=== PATIENT | male | born 1950 | race Caucasian/White ===

== ENCOUNTER 2018-07-14 18:53 | Emergency (ER) | payer MEDICARE, BC ==
--- NOTE | 2018-07-14 19:21 | ER Document Report ---
ED Medical Screen (RME) - General Chief Complaint: Head Injury with LOC Stated Complaint: HEAD INJURY Time Seen by Provider: 07/14/18 19:08 Mode of Arrival: Ambulatory Information source: Patient Notes: 67-year-old male presents emergency department for possible skull fracture. Patient states that he was laying on his back watching TV last night then he stood up and the next thing he remembers was EMS surrounding him. Patient states that he did not feel lightheaded, flushed, nauseated, spinning prior to the fall. Patient states that he hit his head on the coffee table. He refused to go to the emergency department last night for evaluation. He went to see his primary care physician today around 5 PM. He he was having floaters in his right eye. Patient's primary care physician sutured the laceration and thought that there was a skull fracture. He sent the patient to the emergency department for further evaluation. Patient denies any speech changes, numbness, tingling, weakness. He states he is not on any blood thinners. He is having some neck pain. He states that it is midline at the base of his skull. I have greeted and performed a rapid initial assessment of this patient. A comprehensive ED assessment and evaluation of the patient, analysis of test results and completion of the medical decision making process will be conducted by additional ED providers. PHYSICAL EXAMINATION: GENERAL: Well-appearing, well-nourished and in no acute distress. HEAD: R scalp laceration, normocephalic. EYES: Pupils equal round extraocular movements intact, conjunctiva are normal. ENT: Nares patent NECK: Tenderness to palpation at the base of the skull/proximal cervical spine. LUNGS: No respiratory distress Musculoskeletal: Normal range of motion NEUROLOGICAL: Normal speech, normal gait. PSYCH: Normal mood, normal affect. SKIN: Warm, Dry, normal turgor, no rashes or lesions noted. TRAVEL OUTSIDE OF THE [place] IN LAST 30 DAYS: No COUNTRY TRAVELED TO/FROM: [place] - Related Data Allergies/Adverse Reactions: No Known Allergies Allergy (Verified 04/12/17 18:12) Past Medical History - Social History Chew tobacco use (# tins/day): No Frequency of alcohol use: Social Drug Abuse: None - Past Medical History Cardiac Medical History: Reports: Hx Hypercholesterolemia, Hx Hypertension Renal/ Medical History: Denies: Hx Kidney Stones, Hx Peritoneal Dialysis Musculoskeltal Medical History: Reports Hx Gout - multiple reoccurences Past Surgical History: Reports: Hx Orthopedic Surgery - BOTH KNEES, R SHOULDER - Immunizations Hx Diphtheria, Pertussis, Tetanus Vaccination: Yes Physical Exam - Vital signs Vitals: Temp Pulse Resp BP Pulse Ox 98.4 F 99 15 149/102 H 100 07/14/18 19:02 07/14/18 19:02 07/14/18 19:02 07/14/18 19:02 07/14/18 19:02 Course - Vital Signs Vital signs: Temp Pulse Resp BP Pulse Ox 98.4 F 99 15 149/102 H 100 07/14/18 19:02 07/14/18 19:02 07/14/18 19:02 07/14/18 19:02 07/14/18 19:02
--- NOTE | 2018-07-14 20:08 | RADIOLOGY REPORT (SQ) ---
EXAM DESCRIPTION: CT HEAD WITHOUT IV CONTRAST COMPLETED DATE/TME: 07/14/2018 19:15 CLINICAL HISTORY: 67 years, Male, trauma COMPARISON: None. TECHNIQUE: 204 Images stored on PACS. All CT scanners at this facility use dose modulation, iterative reconstruction, and/or weight based dosing when appropriate to reduce radiation dose to as low as reasonably achievable (ALARA). [facility]: Dose Right [facility]: CareDose [facility]: Dose Right [facility]: Teradose 4D [facility]: [employer] LIMITATIONS: None. FINDINGS: The globes are intact. The paranasal sinuses and mastoid air cells are unremarkable. No displaced or depressed skull fracture. No intra or extra-axial hemorrhage. CT is limited for evaluation of acute infarct. No CT evidence for large or territorial acute infarct. No mass or midline shift. IMPRESSION: Unremarkable exam TECHNICAL DOCUMENTATION: Quality ID # 436: Final reports with documentation of one or more dose reduction techniques (e.g., Automated exposure control, adjustment of the mA and/or kV according to patient size, use of iterative reconstruction technique) copyright 2011 [employer]- All Rights Reserved
--- NOTE | 2018-07-14 20:09 | RADIOLOGY REPORT (SQ) ---
EXAM DESCRIPTION: CT CERVICAL SPINE WITHOUT IV CONTRAST COMPLETED DATE/TME: 07/14/2018 19:15 CLINICAL HISTORY: 67 years, Male, trauma COMPARISON: None. TECHNIQUE: 256 Images stored on PACS. All CT scanners at this facility use dose modulation, iterative reconstruction, and/or weight based dosing when appropriate to reduce radiation dose to as low as reasonably achievable (ALARA). [facility]: Dose Right [facility]: CareDose [facility]: Dose Right [facility]: Teradose 4D [facility]: [employer] LIMITATIONS: None. FINDINGS: Evaluation of spinal canal contents limited due to CT technique. Slight reversal of the normal cervical lordosis which may reflect muscle spasm/strain. Disc space narrowing with ossific spurring and facet arthropathy C5-6 and C6-7. Disc spaces are otherwise maintained. Height and alignment is preserved. Limited evaluation of extraspinal anatomic structures is unremarkable. IMPRESSION: Reversal of the normal cervical lordosis which may reflect muscle spasm/strain. Minor degenerative change as above TECHNICAL DOCUMENTATION: Quality ID # 436: Final reports with documentation of one or more dose reduction techniques (e.g., Automated exposure control, adjustment of the mA and/or kV according to patient size, use of iterative reconstruction technique) copyright 2010 [employer]- All Rights Reserved
[2018-07-14 20:38] LABS: ABSOLUTE EOSINOPHILS # (AUTO) 0.1 10^3/uL (0.0-0.6); ABSOLUTE LYMPHOCYTES (AUTO) 2.1 10^3/uL (0.5-4.7); ABSOLUTE MONOCYTES (AUTO) 0.6 10^3/uL (0.1-1.4); ABSOLUTE NEUT (AUTO) 5.5 10^3/uL (1.7-8.2); BASOPHILS % (AUTO) 0.6 % (0-2); EOSINOPHILS % (AUTO) 0.8 % (0-6); HEMATOCRIT 38.7 % (37.9-51.0); HEMOGLOBIN 13.3 g/dL (13.5-17.0); MEAN CORPUSCULAR HGB CONC 34.3 g/dL (32.0-36.0); MEAN CORPUSCULAR VOLUME 93 fl (80-97); MONOCYTES % (AUTO) 7.5 % (3-13); PLATELET COUNT 164 10^3/uL (150-450); RED BLOOD COUNT 4.14 10^6/uL (4.35-5.55); RED CELL DISTRIBUTION WIDTH 14.3 % (11.5-14.0); SEGMENTED NEUTROPHILS % (AUTO) 66.1 % (42-78); TOTAL CELLS COUNTED % (AUTO) 100 %; WHITE BLOOD COUNT 8.3 10^3/uL (4.0-10.5)
[2018-07-14 20:45] LABS: INTERNATIONAL RATION (INR) 0.94; PARTIAL THROMBOPLASTIN TIME 27.4 SEC (23.5-35.8); PROTHROMBIN TIME 13.1 SEC (11.4-15.4)
[2018-07-14 20:49] LABS: ALANINE AMINOTRANSFERASE 41 U/L (21-72); ALBUMIN 4.8 g/dL (3.5-5.0); ALKALINE PHOSPHATASE 49 U/L (38-126); ANION GAP 13 (5-19); ASPARTATE AMINO TRANSFERASE 50 U/L (17-59); BILIRUBIN,DIRECT 0.2 mg/dL (0.0-0.4); BILIRUBIN,TOTAL 1.4 mg/dL (0.2-1.3); BLOOD UREA NITROGEN 25 mg/dL (7-20); CALCIUM 10.1 mg/dL (8.4-10.2); CARBON DIOXIDE 27 mmol/L (22-30); CHLORIDE 101 mmol/L (98-107); GLUCOSE 91 mg/dL (75-110); POTASSIUM 4.3 mmol/L (3.6-5.0); SODIUM 140.8 mmol/L (137-145)
--- NOTE | 2018-07-14 20:50 | ER Document Report ---
ED General - General Chief Complaint: Head Injury with LOC Stated Complaint: HEAD INJURY Time Seen by Provider: 07/14/18 19:08 Primary Care Provider: ADÁN JONES MD [Primary Care Provider] - Follow up as needed Mode of Arrival: Ambulatory Notes: Patient is a 67-year-old male who presents after apparently having a loss of consciousness when going from a sitting to standing position last evening falling backwards and striking his head on a coffee table. EMS did come up to the hospital patient declined transfer. Went to his primary care physician's office today, had laceration repair of the scalp wound and was referred to the emergency room due to concern for possible underlying skull fracture. The patient denies any focal weakness, numbness, nausea or vomiting since the a ccident. He does note a dull, throbbing, constant pain to the back of his scalp. Has a history of orthostatic hypotension and lightheadedness but is never had syncope. Denies any chest pain, shortness of breath either before or after the fall. States he is otherwise felt fine today and is here specifically because his primary care doctor referred him due to concerns of a skull fracture and for no other reason. TRAVEL OUTSIDE OF THE [place] IN LAST 30 DAYS: No COUNTRY TRAVELED TO/FROM: [place] - Related Data Allergies/Adverse Reactions: No Known Allergies Allergy (Verified 04/12/17 18:12) Past Medical History - General Information source: Patient - Social History Smoking Status: Current Every Day Smoker Chew tobacco use (# tins/day): No Frequency of alcohol use: Social Drug Abuse: None Lives with: Spouse/Significant other Family History: Reviewed & Not Pertinent Patient has suicidal ideation: No Patient has homicidal ideation: No - Past Medical History Cardiac Medical History: Reports: Hx Hypercholesterolemia, Hx Hypertension Renal/ Medical History: Denies: Hx Kidney Stones, Hx Peritoneal Dialysis Musculoskeletal Medical History: Reports Hx Gout - multiple reoccurences Past Surgical History: Reports: Hx Orthopedic Surgery - BOTH KNEES, R SHOULDER - Immunizations Hx Diphtheria, Pertussis, Tetanus Vaccination: Yes Review of Systems - Review of Systems Notes: Constitutional: Negative for fever. HENT: Negative for sore throat. Eyes: Negative for visual changes. Cardiovascular: Negative for chest pain. Respiratory: Negative for shortness of breath. Gastrointestinal: Negative for abdominal pain, vomiting or diarrhea. Genitourinary: Negative for dysuria. Musculoskeletal: Negative for back pain. Skin: Positive for scalp laceration Neurological: Positive head trauma 10 point ROS negative except as marked above and in HPI. Physical Exam - Vital signs Vitals: Temp Pulse Resp BP Pulse Ox 98.4 F 99 15 149/102 H 100 07/14/18 19:02 07/14/18 19:02 07/14/18 19:02 07/14/18 19:02 07/14/18 19:02 Interpretation: Normal Notes: PHYSICAL EXAMINATION: GENERAL: Well-appearing, no acute distress. HEAD: Atraumatic, normocephalic. EYES: Pupils equal round and reactive to light, extraocular movements intact, sclera anicteric, conjunctiva are normal. ENT: nares patent, no oral pharyngeal trauma. No hemotympanum, no Roe's sign, no raccoon eyes. NECK: No midline cervical spine tenderness. Patient able to move their head to 45 bilaterally without any discomfort. LUNGS: Breath sounds clear to auscultation bilaterally and equal. No wheezes rales or rhonchi. HEART: Regular rate and rhythm without murmurs. CHEST WALL: No ecchymosis over the chest wall. ABDOMEN: Soft, nontender, normoactive bowel sounds. No guarding, no rebound. No abdominal bruising EXTREMITIES: Normal range of motion, no pitting or edema. No long bone d eformities. BACK: No midline spinal tenderness, step-offs, or deformities. NEUROLOGICAL: Face symmetric. Tongue protrudes midline. Extraocular motions intact. Pupils are 2 mm and equally reactive. Normal speech, normal gait. 5 out of 5 strength in both the distal and proximal upper and lower extremities bilaterally. Sensation is grossly intact throughout. Finger to nose testing normal. Pronator drift normal. PSYCH: Normal mood, normal affect. SKIN: Warm, Dry, normal turgor, repaired right occipital scalp laceration Course - Re-evaluation Re-evalutation: 07/14/18 20:47 Patient is a 67-year-old male, not on anticoagulation who presents after falling and striking his head approximately 24 hours ago sustaining a laceration to the right posterior occiput. Was seen by Dr. Moon today in clinic, had laceration repaired but was referred to the emergency department due to concerns of a possible skull fracture. CT of the head and cervical spine unremarkable. Patient does not have any clinical findings to suggest a basilar skull fracture. No periauricular hematoma, no hemotympanum, no raccoon eyes, no evidence of CSF leak. Labs were obtained in triage as apparently the patient did have a syncopal episode preceding the fall last evening. This appears to be an episode of orthostatic syncope as his who witnessed the episode states that he went from sitting to standing position and abruptly lost consciousness. The patient reports a long-standing history of orthostatic hypotension although has never had a syncopal episode in this manner. EKG unremarkable. Labs likewise unremarkable. Neurological exam unremarkable. At this time will discharge with return precautions and follow-up recommendations. Verbal discharge instructions given a the bedside and opportunity for questions given. Medication warnings reviewed. Patient is in agreement with this plan and has verbalized understanding of return precautions and the need for primary care follow-up in the next 24-72 hours. - Vital Signs Vital signs: Temp Pulse Resp BP Pulse Ox 98.4 F 99 15 133/91 H 96 07/14/18 19:02 07/14/18 19:02 07/14/18 22:01 07/14/18 22:01 07/14/18 22:01 - Laboratory Result Diagrams: 07/14/18 20:25 07/14/18 20:25 Laboratory results interpreted by me: 07/14/18 07/14/18 20:25 20:25 RBC 4.14 L Hgb 13.3 L RDW 14.3 H BUN 25 H Total Bilirubin 1.4 H - Diagnostic Test Radiology reviewed: Image reviewed, Reports reviewed Radiology results interpreted by me: 07/14/18 20:48 CT head: No acute intracranial bleed or mass - EKG Interpretation by Me Additional EKG results interpreted by me: 07/14/18 20:48 Sinus rhythm, rate 78. No ST elevations or depressions. QTC 433. Discharge - Discharge Clinical Impression: Orthostatic hypotension Head trauma Qualifiers: Encounter type: initial encounter Qualified Code(s): S09.90XA - Unspecified injury of head, initial encounter Scalp laceration Qualifiers: Encounter type: initial encounter Qualified Code(s): S01.01XA - Laceration without foreign body of scalp, initial encounter Condition: Good Disposition: HOME, SELF-CARE Additional Instructions: You have likely sustained a contusion (bruise) to your head. The CT scan of your head and neck are normal. Your labs and EKG are also reassuring. Symptoms to expect from a concussion include nausea, mild to moderate headache, difficulty concentrating or sleeping, and mild lightheadedness. These symptoms should improve over the next few days to weeks. Return to the emergency department or follow-up with your primary care doctor if your symptoms are not improving over this time. Signs of a more serious head injury include vomiting, severe headache, excessive sleepiness or confusion, and weakness or numbness in your face, arms or legs. Return immediately to the Emergency Department if you experience any of these more concerning symptoms. Rest, avoid strenuous physical or mental activity, and avoid activities that could potentially result in another head injury until all your symptoms from this head injury are completely resolved for at least 2-3 weeks. If you participate in sports, get cleared by your doctor or small engine trainer before returning to play. You may take ibuprofen or acetaminophen over the counter according to label instructions for mild headache or scalp soreness. Referrals: ADÁN JONES MD [Primary Care Provider] - Follow up as needed
[2018-07-14 22:21] VITALS: BP 133/91
--- NOTE | 2018-07-15 14:01 | EKG REPORT ---
SEVERITY:- BORDERLINE ECG - SINUS RHYTHM LEFT AXIS DEVIATION : Confirmed by: Mariia Muñiz 15-Jul-2018 14:00:57
== END 2018-07-14 22:32 | disposition home or self-care (01) ==
LOC: ER 18:53
DX: I95.1 Orthostatic hypotension (principal); S09.90XA Unspecified injury of head, initial encounter; S01.01XA Laceration without foreign body of scalp, initial encounter; W01.190A Fall on same level from slipping, tripping and stumbling with subsequent striking against furniture, initial encounter; F17.200 Nicotine dependence, unspecified, uncomplicated; E78.00 Pure hypercholesterolemia, unspecified; I10 Essential (primary) hypertension
CPT/HCPCS: 36415; 70450; 72125; 80053; 85025; 85610; 85730; 93005; 93010; 99284